=== PATIENT | female | born 1955 | race Caucasian/White ===

== ENCOUNTER 2017-05-22 05:53 | Emergency (ER) | payer OTHER ==
[~2017-05-22] VITALS: Ht 157.5 cm; Wt 93.2 kg
[2017-05-22 06:05] VITALS: BP 111/78; PULSE 64; RESP 16; O2SAT 97
--- NOTE | 2017-05-22 06:11 | ED.REPORT ---
HPI-Chest Pain 40 and Over Date of Service May 22, 2017 ED Provider: Felipe Lara MD Patient is a 61 year old female with a hx of DM, HTN, and hyperlipidemia, who presents to the ED complaining of dizziness when standing onset this morning upon waking at 0430. Associated symptoms include trouble walking (pulling to the right). Associated symptoms include intermittent "fluttering" in chest (5 second episodes several times a day) and R sided chest discomfort which the patient reports have been going on for a month. She denies lateralizing weakness , visual changes, difficulty swallowing or speaking, fever, cough, difficulty breathing, nausea, vomiting, abdominal pain, hematochezia, diarrhea, extremity swelling, extremity pain, hemoptysis, or any other symptoms. She takes metformin, lisinopril, atorvastatin, and paroxetine daily. She has not had any changes in her lisinopril dosage recently. Nursing Notes Stated Complaint: DIZZY Chief Complaint: Chest Pain Nursing Notes Reviewed: Yes Allergies: Coded Allergies: No Known Allergies (Unverified , 05/22/17) Scheduled Cephalexin (Keflex) 500 Mg Capsule 500 MG PO QID General Time Seen by MD: 06:01 Chief Complaint Other (Dizziness ) Hx Obtained From: Patient Arrived By: Walk-in Sudden in Onset?: Yes Onset Occurred: 1 - 4 hours ago Symptom Duration: Since onset Risk Factors )( CAD Risk Stratification Diabetes mellitus Hyperlipidemia HypertensionNo Smoking )( TAD Risk Stratification HypertensionNo Marfan's syndrome, No Risk factors reviewed )( PE Risk Stratification No , No Previous DVT, No Previous PE Risk factors reviewed PERC Rule Age 50 or over (PERC Negative ) Past Medical History Past Medical History Reports: Diabetes mellitus, Hyperlipidemia, Hypertension Past Surgical History R knee Smoking History Never Smoker Social History Other Social History: Good social support, Ambulatory Status Independent Review of Systems Review of Systems Note: denies difficulty swallowing or speaking, hemoptysis Cardiovascular: Reports: Chest pain, Palpitations GI: Denies: Abdominal pain, Diarrhea, Hematochezia, Nausea, Vomiting Musculoskeletal: Denies: Extremity pain, Extremity swelling Neurologic: Reports: Dizziness, Denies: Focal weakness, Vision change, Weakness Complete sys rev & neg: except as marked. Physical Exam Initial Vital Signs Vital Signs (First) Date Time Temp Pulse Resp B/P Pulse Ox O2 Delivery O2 Flow Rate FiO2 05/22/17 06:05 37.6 64 16 111/78 97 Room Air Initial VS: Reviewed, Vital signs abnormal Head / Eyes: Atraumatic, Normocephalic, PERRL Neck: Full range of motion Skin: Warm, Dry Neurologic: Alert, Oriented, Nonfocal Psychiatric: Mood/affect normal, Behavior normal, Normal thought content General/Constitutional: Awake, Alert, No acute distress Respiratory / Chest: Atraumatic, Breath sounds NL, Breath sounds = bilat, No respiratory distress Cardiovascular: Heart rate NL, Regular rhythm, Heart sounds NL, No gallop, No murmurs, No rubs Abdomen: Atraumatic, Soft, Non-tender Lower Extremity / Pelvis / MS: No edema Neurologic: Oriented X3, Speech NL, CN II - XII intact Vision grossly normal FNF and heel to varner nL Interpretation & Diagnostics Lab Results Interpretation Result Diagram: 05/22/17 0645 05/22/17 0645 Test 05/22/17 06:45 05/22/17 07:48 White Blood Count 6.9th/mm3 (3.8-10.1) Red Blood Count 4.25mil/mm3 (3.90-5.20) Hemoglobin 13.1g/dL (12.0-15.6) Hematocrit 39.1% (35.0-46.0) Mean Corpuscular Volume 92.0fL (81-100) Mean Corpuscular Hemoglobin 30.8pg (27.0-35.0) Mean Corpuscular Hemoglobin Concent 33.5% (32.0-37.0) Red Cell Distribution Width 13.4% (12.3-15.4) Platelet Count 287bil/L (150-400) Neutrophils (%) (Auto) 49.0% (40-74) Lymphocytes (%) (Auto) 39.6% (14-46) Monocytes (%) (Auto) 9.6% (4-12) Eosinophils (%) (Auto) 1.6% (0-5) Basophils (%) (Auto) 0.1% (0-3) Sodium Level 139mEq/L (134-144) Potassium Level 4.0mEq/L (3.5-5.2) Chloride Level 101mEq/L (97-108) Carbon Dioxide Level 21mmol/L (18-29) Blood Urea Nitrogen 16mg/dL (6-24) Creatinine 0.65mg/dL (0.57-1.00) Estimat Glomerular Filtration Rate 134mL/min (>59) Glucose Level 147mg/dL (60-99) Calcium Level 9.4mg/dL (8.5-10.1) Magnesium Level 1.5mg/dL (1.6-2.6) Total Bilirubin 0.3mg/dL (0.0-1.2) Aspartate Amino Transf (AST/SGOT) 25U/L (0-50) Alanine Aminotransferase (ALT/SGPT) 27U/L (0-32) Alkaline Phosphatase 99U/L (25-165) Troponin T < 0.010ug/L (0.0-0.011) Total Protein 7.1g/dL (6.4-8.4) Albumin 4.1g/dL (3.4-5.0) Urine Color Straw (YELLOW) Urine Appearance Hazy (CLEAR,HAZY) Urine pH 5.5 (5.0-8.0) Urine Specific [place] 1.010 (1.003-1.035) Urine Protein Negativemg/dL (NEG,TRACE) Urine Glucose (UA) Negativemg/dL (NEGATIVE) Urine Ketones Negativemg/dL (NEGATIVE) Urine Occult Blood Negative (NEGATIVE) Urine Nitrite Negative (NEGATIVE) Urine Bilirubin Negative (NEGATIVE) Urine Urobilinogen Normalmg/dL (NORMAL) Urine Leukocyte Esterase Small (NEGATIVE) Urine RBC 0-2/hpf (0-2) Urine WBC 6-10/hpf (0-5) Urine Epithelial Cells Occasional/hpf (NONE-MOD) Urine Crystals None seen (NONE SEEN) Urine Bacteria Moderate/hpf (NONE-FEW) Urine Hyaline Casts None/lpf (NONE) Urine Granular Casts None seen (NONE SEEN) Urine Waxy Casts None seen (NONE SEEN) Urine Red Blood Cell Casts None seen (NONE SEEN) Urine White Blood Cell Casts None seen (NONE SEEN) Urine Mucus None seen (None Seen) Urine Trichomonas None seen (NONE SEEN) Urine Yeast None (NONE SEEN) Urinalysis Comment None Urine Culture Reflexed Indicated ECG Interpretation ECG Interpretation: Sinus rate [address], T changes Time: 06:05 Interpreted by: ED physician X-Ray Chest Interpretation Chest Xray Interpretation: IMPRESSION: 1. No acute cardiopulmonary disease. Dictated by: Bola Herr M.D. on 05/22/2017 at 8:28 Approved by: Bola Herr M.D. on 05/22/2017 at 8:29 View: Portable, 1 view Interpretation / Wet Read by: Interpret - Radiologist CT Head Interpretation IMPRESSION: 1. No acute intracranial abnormalities. 2. Cerebral volume loss and chronic microvascular ischemic changes. No significant discrepancy with the account manager radiology preliminary report. Dictated by: Cyndi Brasher M.D. on 05/22/2017 at 7:44 Approved by: Cyndi Brasher M.D. on 05/22/2017 at 7:45 Re-Eval/Medical Decision Med Decision/Clinical Course 61-year-old female presenting with dizziness earlier today. Resolved prior to arrival. She also reports some fluttering in her chest for many days which has resolved prior to arrival and some right-sided chest pain yesterday which resolved. Her vital signs are stable here. Her orthostatics are negative. Chest x-ray is clear. Her CT brain is normal. Her labs are unremarkable. Her urine does suggest UTI. She has no focal neurological deficits. She has no risk factors for blood clot. Her symptoms resolved prior to arrival when she felt much better after fluids. She will be discharged home with diagnosis of dizziness and UTI. She will follow up with primary doctor in 1 day for reevaluation. She was advised to return immediately should she have any recurrent chest pain, difficulty breathing, fevers, nausea vomiting, back pain, any other new or worsening symptoms. Time of Eval: 08:36 Re-Evaluation/Progress Note: Rechecked patient who is feeling better. Discussed plan for discharge. Patient understands and agrees with plan. All questions addressed at this time. Counseled Regarding: Diagnosis, Lab results, Need for follow-up, When/why to return to ED Discharge & Departure Primary Impression: Dizziness Additional Impression: UTI (urinary tract infection) Urinary tract infection type: site unspecified Hematuria presence: without hematuria Qualified Code: N39.0 - Urinary tract infection, site not specified Disposition: Home Discharge Condition All VS Reviewed: Yes Condition: Stable Patient Instructions: Urinary Tract Infection in Women (ED) Additional Instructions: Thank you for entrusting us with your care. Your urine suggests that you have a urinary tract infection. Take Keflex as prescribed. There are no other concerning causes for your dizziness. Your imaging is also reassuring. There is no concerning cause for your chest discomfort or fluttering. Continue to take a daily baby aspirin. Follow up with your primary doctor in a few days for a re-evaluation. Talk to her about scheduling a sleep test. Return to the emergency department for fevers, vomiting, weakness, numbness, tingling, back pain, trouble speaking or swallowing, or any other new or worsening symptoms. Referrals: Yareli Johnson MD (Family) Scribe Attestation Portions of this note were transcribed by Delgado Oakley. I, Dr. Lara personally performed the history, physical exam and medical decision-making; I reviewed and confirmed the accuracy of the information in the transcribed note. copies to: Yareli Johnson MD, Ben M MD May 22, 2017 06:11 DELGADO OAKLEY May 22, 2017 06:29
[2017-05-22] MEDS ORDERED: 0.9% Sodium Chloride 1,000 ML IV ONE (06:36)
[2017-05-22 06:48] LABS: BASOPHILS % (AUTO) 0.1 % (0-3); EOSINOPHILS % (AUTO) 1.6 % (0-5); MONOCYTES % (AUTO) 9.6 % (4-12); Mean Corpuscular Hemoglobin 30.8 pg (27.0-35.0); Platelet Count 287 bil/L (150-400)
[2017-05-22 07:38] LABS: Magnesium 1.5 mg/dL (1.6-2.6)
--- NOTE | 2017-05-22 07:47 | DRSVH ---
PROCEDURE: CT BRAIN WITHOUT CONTRAST ([id number]) INDICATIONS: dizziness TECHNIQUE: Noncontrast 4.5 mm thick angled axial sections acquired from the foramen magnum to the vertex, with c oronal reformats. COMPARISON: None. FINDINGS: Image quality: Excellent. CSF spaces: Basal cisterns are patent. No extra-axial fluid collections. The ventricles are symmet ayala in size and shape. Brain: No intracranial bleeds or masses. There is mild cerebral volume loss for age, with resultant ventricular and sulcal prominence. There are mild periventricular and deep white matter chronic sma ll vessel ischemic changes. There is intracranial internal carotid artery atherosclerosis. Skull and face: Calvarium and visualized facial bones appear intact, without suspicious lesions. Sinuses: Visualized sinuses and mastoids are clear. IMPRESSION: 1. No acute intracranial abnormalities. 2. Cerebral volume loss and chronic microvascular ischemic changes. No significant discrepancy with the plant operator/shift supervisor radiology preliminary report. Dictated by: Cyndi Brasher M.D. on 05/22/2017 at 7:44 Approved by: Cyndi Brasher M.D. on 05/22/2017 at 7:45
[2017-05-22 07:48] LABS: TROPONIN T < 0.010 ug/L (0.0-0.011)
[2017-05-22 07:59] VITALS: BP_SYST 112; BP_SYST 97; BP_DIAS 55; BP_DIAS 62; PULSE 67; PULSE 72; RESP 16; O2SAT 99
--- NOTE | 2017-05-22 08:30 | DRSVH ---
PROCEDURE: X-RAY CHEST ONE VIEW, PORTABLE ([id number]) INDICATIONS: chest pain, dizzy TECHNIQUE: One view of the chest was acquired. COMPARISON: None. FINDINGS: Surgical changes and devices: None. Lungs and pleura: No pleural effusions or pneumothorax. Lungs are clear. Mediastinum: Mediastinal contours appear normal. Heart size is normal. Bones and chest wall: No suspicious bony lesions. Overlying soft tissues appear unremarkable. IMPRESSION: 1. No acute cardiopulmonary disease. Dictated by: Bola Herr M.D. on 05/22/2017 at 8:28 Approved by: Bola Herr M.D. on 05/22/2017 at 8:29
[2017-05-22 08:31] LABS: APPEARANCE,URINE HAZY (CLEAR,HAZY); COLOR,URINE STRAW (YELLOW); OCCULT BLOOD,URINE NEGATIVE (NEGATIVE); PH,URINE 5.5 (5.0-8.0); UROBILINOGEN,URINE NORMAL (NORMAL)
[2017-05-22] MEDS ORDERED: CEPH-512 PO (08:35)
[2017-05-22 08:54] VITALS: BP 121/60; PULSE 61; RESP 16; O2SAT 96
[2017-05-22 09:03] VITALS: BP 121/60; PULSE 61; RESP 16; O2SAT 96
== END 2017-05-22 09:04 | disposition home or self-care (01) ==
LOC: SED 05:53
DX: N39.0 Urinary tract infection, site not specified (principal); R42 Dizziness and giddiness; R07.89 Other chest pain; I10 Essential (primary) hypertension; E11.9 Type 2 diabetes mellitus without complications; E78.5 Hyperlipidemia, unspecified
CPT/HCPCS: 36415; 70450; 71010; 80053; 81000; 83735; 84484; 85025; 87086; 87088; 93005; 96360; 99285; J7030